=== PATIENT | male | born 1980 | race African-American/Black ===

== ENCOUNTER 2017-02-03 07:27 | Emergency (ER) | payer MEDICAID ==
[~2017-02-03] VITALS: Ht 182.9 cm; Wt 86.2 kg
[2017-02-03 07:55] VITALS: BP 131/57
[2017-02-03 07:59] LABS: Basophils # (auto) 0 uL; Basophils % (auto) 0.6 % (0.0-2.0); Eosinophils # (auto) 0 uL; Eosinophils % (auto) 0.4 % (0.0-7.0); Hematocrit 47.5 % (41.0-53.0); Hemoglobin 16.1 g/dL (13.5-17.5); Lymphocytes # (auto) 1.8 uL; Lymphocytes % (auto) 27.7 % (10.0-50.0); Mean Corpuscular Hemoglobin 30.8 pg (28.0-32.0); Mean Corpuscular Volume 90.6 fL (80.0-100.0); Mean Platelet Volume 8.4 fL (6.9-10.8); Monocytes # (auto) 0.9 uL; Neutrophils # (auto) 3.8 uL; Neutrophils % (auto) 57.3 % (37.0-80.0); Nucleated Red Blood Cells % 0.1 %; Platelet Count (auto) 203 10^3/uL (140-450); Red Cell Distribution Width 13.8 % (11.8-14.3); White Blood Cell 6.7 10^3/uL (4.4-10.8)
[2017-02-03 08:17] LABS: Albumin 3.5 g/dL (3.4-5.0); BUN/Creatinine Ratio 9.5; Bilirubin, Total 0.4 mg/dL (0.2-1.0); Calcium 8.3 mg/dL (8.5-10.1); Potassium 4.3 mmol/L (3.5-5.1); Total Protein 8.2 g/dL (6.4-8.2)
[2017-02-03 08:19] LABS: Urine Bilirubin Negative (Negative); Urine Blood Negative /uL (Negative); Urine Color Yellow (Yellow); Urine Glucose Normal (Normal); Urine Ketone Negative (Negative); Urine Mucus FEW (None Seen); Urine Nitrite Negative (Negative); Urine RBC 2 /hpf (0 - 3); Urine Urobilinogen Normal (Negative)
== END 2017-02-03 08:57 | disposition home or self-care (01) ==
LOC: ER 07:27
DX: R07.89 Other chest pain (principal); R19.7 Diarrhea, unspecified; R10.9 Unspecified abdominal pain; F17.210 Nicotine dependence, cigarettes, uncomplicated
CPT/HCPCS: 36415; 71020; 80053; 81001; 85025